=== PATIENT | male | born 1985 | race American Indian/Alaskan Native ===

== ENCOUNTER 2017-12-26 15:36 | Emergency (ER) | payer SELFPAY ==
--- NOTE | 2017-12-26 18:06 | Emergency Department Report ---
HPI - General Chief Complaint: Extremity Problem,Nontraumatic Time Seen by Provider: 12/26/17 17:30 - HPI HPI: 32-year-old male presents to the emergency department with a complaint of swelling of the left foot. He says that the symptoms going on for 2 days but the right foot was also swollen yesterday but that spontaneously resolved. He denies any trauma including any rolling of the foot or ankle. He does not have any discomfort to the area. He denies any skin color change, warmth, rash. He denies any other past medical history. 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 He has not taken anything for his symptoms prior presentation. ED Past Medical Hx - Past Medical History Previous Medical History?: No - Surgical History Past Surgical History?: No - Social History Smoking Status: Never Smoker Substance Use Type: None ED Review of Systems ROS: Stated complaint: SWOLLEN Other details as noted in HPI Comment: All other systems reviewed and negative Constitutional: denies: chills, fever Eyes: denies: eye pain, eye discharge, vision change ENT: denies: ear pain, throat pain Respiratory: denies: cough, shortness of breath, wheezing Cardiovascular: edema. denies: chest pain, palpitations Gastrointestinal: denies: abdominal pain, nausea, diarrhea Genitourinary: denies: urgency, dysuria Musculoskeletal: joint swelling. denies: back pain Skin: denies: rash, lesions Neurological: denies: headache, weakness, paresthesias Physical Exam - Physical Exam Vital Signs: Vital Signs 12/26/17 15:55 Temperature 98.3 F Pulse Rate 60 Respiratory 16 Rate Blood Pressure 115/70 O2 Sat by Pulse 97 Oximetry Physical Exam: GENERAL: The patient is well-developed well-nourished. HENT: Normocephalic. Atraumatic. Patient has moist mucous membranes. EYES: Extraocular motions are intact. NECK: Supple. Trachea is midline. CHEST/LUNGS: Clear to auscultation. There is no respiratory distress noted. HEART/CARDIOVASCULAR: Regular. There is no tachycardia. There is no murmur. ABDOMEN: There is no abdominal distention. SKIN: Skin is warm and dry. There is some nonpitting swelling to the left foot. No erythema, rash, fluctuance. NEURO: The patient is awake, alert, and oriented. The patient is cooperative. The patient has no focal neurologic deficits. The patient has normal speech. MUSCULOSKELETAL: There is no tenderness or deformity. There is no limitation range of motion. There is a palpable dorsalis pedis pulse and cap refill less than 2 seconds to the affected left foot. ED Course Vital Signs 12/26/17 15:55 Temperature 98.3 F Pulse Rate 60 Respiratory 16 Rate Blood Pressure 115/70 O2 Sat by Pulse 97 Oximetry ED Medical Decision Making - Lab Data Result diagrams: 12/26/17 18:10 12/26/17 18:10 - Radiology Data Radiology results: image reviewed interpreted by me: X-ray of left ankle does not show any fracture, dislocation or any acute process. - Medical Decision Making Patient presents with a one to 2 day history of left foot and ankle swelling. There is no signs of any infection. Labs are unremarkable. No leukocytosis. He had a negative d-dimer. X-ray does not show any fracture, dislocation or any acute process. Vital signs stable throughout his ED course. He appears safe for discharge home at this time. He has been set up for an outpatient venous Doppler ultrasound to rule out a DVT. If positive, he'll be redirected to the emergency department for anticoagulation. If negative, he has been given referrals for primary care. He has been instructed to use an Luis M wrap for compression and keep the foot elevated when he is not working. He'll return to the ER if any worsening of symptoms or any acute distress. - Differential Diagnosis venous stasis, DVT, CHF, cellulitis Critical Care Time: No Critical care attestation.: If time is entered above; I have spent that time in minutes in the direct care of this critically ill patient, excluding procedure time. ED Disposition Clinical Impression: Swelling of left foot Disposition: DC-01 TO HOME OR SELFCARE Is pt being admited?: No Condition: Stable Instructions: Leg Edema (ED) Additional Instructions: Please follow up with a primary care physician in the next few days. I have also given you a referral for a local pneumatic hoist operator, Dr. Her. I have said she will up to return to the outpatient imaging portion of the hospital for a left leg venous Doppler ultrasound to rule out a blood clot. If positive, U will be redirected to the emergency department for further treatment. If negative, follow up with the physicians as described above. Return to the emergency Department with any worsening of your symptoms or any acute distress. Referrals: PRIMARY CARE, [Primary Care Provider] - 3-5 Days ALEXX HER DPM [Staff Physician] - 3-5 Days KAREN CHANEL MD [Staff Physician] - 3-5 Days [facility] [Outside] - 3-5 Days Time of Disposition: 18:57
--- NOTE | 2017-12-26 18:08 | XRay Report ---
FINAL REPORT EXAM: XR ANKLE 3+V LT HISTORY: ankle swelling TECHNIQUE: 3 views of the left ankle PRIORS: None. FINDINGS: Bimalleolar soft tissue prominence may reflect swelling. There is no radiographic evidence of definite acute fracture or dislocation. No evidence of osseous lesion. Joint spaces are maintained. There is no evidence of significant degenerative arthrosis. IMPRESSION: No acute skeletal pathology
[2017-12-26 18:25] LABS: Basophils # (Auto) 0.1 K/mm3 (0.0-0.1); Basophils % (Auto) 0.7 % (0.0-1.8); Eosinophils # (Auto) 0.1 K/mm3 (0.0-0.4); Eosinophils % (Auto) 1.3 % (0.0-4.3); Hematocrit 45.6 % (35.5-45.6); Lymphocytes # (Auto) 2.3 K/mm3 (1.2-5.4); Mean Corpuscular HGB Conc 33 % (32-34); Mean Corpuscular Hemoglobin 30 pg (28-32); Mean Corpuscular Volume 90 fl (84-94); Monocytes # (Auto) 0.8 K/mm3 (0.0-0.8); Monocytes % (Auto) 10.1 % (0.0-7.3); Platelet Count 194 K/mm3 (140-440); Red Cell Distribution Width 13.7 % (13.2-15.2)
[2017-12-26 18:34] LABS: BUN/Creatinine Ratio 9; Blood Urea Nitrogen 9 mg/dL (9-20); Calcium 8.4 mg/dL (8.4-10.2); Hemolysis Index 52
[2017-12-26 19:07] VITALS: BP 132/88
== END 2017-12-26 19:07 | disposition home or self-care (01) ==
LOC: ED 15:36
DX: M79.89 Other specified soft tissue disorders (principal)
CPT/HCPCS: 36415; 80048; 85025; 85379; 99284

== ENCOUNTER 2020-04-02 00:19 | Emergency (ER) | payer SELFPAY ==
[2020-04-02 00:55] VITALS: BP 110/70
--- NOTE | 2020-04-02 02:40 | Emergency Department Report ---
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 States that over the last few days he felt some shooting pain down his left leg as well but no loss of bowel or bladder no saddle paresthesia. MD Complaint: back pain Similar Symptoms Previously: No Place: home Radiation: none Severity: mild, moderate Quality: dull Consistency: constant Improves With: none Worsens With: none Associated Symptoms: denies: confusion, chest pain, cough, difficulty urinating, incontinence, fever/chills, constipation, loss of appetite, rash, seizure, shortness of breath, syncope - Related Data Previous Rx's Medication Instructions Recorded Last Taken Type Ketorolac [Toradol] 10 mg PO Q6H PRN #15 tablet 04/02/20 Unknown Rx methOCARBAMOL [Robaxin TAB] 750 mg PO Q8H PRN #14 tablet 04/02/20 Unknown Rx Allergies Allergy/AdvReac Type Severity Reaction Status Date / Time No Known Allergies Allergy Verified 12/26/17 15:54 ED Review of Systems ROS: Stated complaint: LOWER BACK PAIN LT LEG TINGLING Other details as noted in HPI Comment: All other systems reviewed and negative ED Past Medical Hx - Past Medical History Previous Medical History?: No - Surgical History Past Surgical History?: Yes Additional Surgical History: Ear tubes - Social History Smoking Status: Never Smoker Substance Use Type: Marijuana - Medications Home Medications: Home Medications Medication Instructions Recorded Confirmed Last Taken Type Ketorolac [Toradol] 10 mg PO Q6H PRN #15 tablet 04/02/20 Unknown Rx methOCARBAMOL [Robaxin TAB] 750 mg PO Q8H PRN #14 tablet 04/02/20 Unknown Rx ED Physical Exam - General Limitations: No Limitations General appearance: alert, in no apparent distress - Head Head exam: Present: atraumatic, normocephalic - Eye Eye exam: Present: normal appearance, PERRL, EOMI Pupils: Present: normal accommodation - ENT ENT exam: Present: normal exam, mucous membranes moist, TM's normal bilaterally - Neck Neck exam: Present: normal inspection, full ROM - Respiratory Respiratory exam: Present: normal lung sounds bilaterally. Absent: respiratory distress, wheezes, rales, chest wall tenderness, accessory muscle use, decreased breath sounds - Cardiovascular Cardiovascular Exam: Present: regular rate, normal rhythm. Absent: systolic murmur, diastolic murmur, rubs, gallop - GI/Abdominal GI/Abdominal exam: Present: soft, normal bowel sounds - Rectal Rectal exam: Present: deferred - Extremities Exam Extremities exam: Present: normal inspection - Back Exam Back exam: Present: normal inspection - Neurological Exam Neurological exam: Present: alert, oriented X3 - Psychiatric Psychiatric exam: Present: normal affect, normal mood - Skin Skin exam: Present: warm, dry, intact, normal color. Absent: rash ED Course Vital Signs 04/02/20 00:44 Temperature 97.9 F Pulse Rate 81 Respiratory 16 Rate Blood Pressure 110/70 O2 Sat by Pulse 96 Oximetry ED Medical Decision Making - Medical Decision Making Pt presents the emergency department complaining of back pain most consistent with lower back pain back Pain Most Consistent with Strain/Contusion. Differential Diagnosis Includes Lumbar Go Versus Musculoskeletal Spasm, Strain Versus Sciatica. No Back Pain Red Flags on History or Physical. Presentation Not Consistent with Malignancy, Fracture, Cauda Equina, Abdominal Aortic Aneurysm, Viscus Perforation, Pulmonary Embolism, Renal Colic, Pyelonephritis. Patient reports no B symptoms, trauma trauma, incontinence, saddle anesthesia, distal weakness, urinary symptoms and is a febrile. Critical care attestation.: If time is entered above; I have spent that time in minutes in the direct care of this critically ill patient, excluding procedure time. ED Disposition Clinical Impression: Lumbago Disposition: DC-01 TO HOME OR SELFCARE Is pt being admited?: No Does the pt Need Aspirin: No Condition: Stable Instructions: Lumbar Radiculopathy (ED), Low Back Strain (ED), Acute Low Back Pain (ED) Prescriptions: methOCARBAMOL [Robaxin TAB] 750 mg PO Q8H PRN #14 tablet PRN Reason: Pain, Moderate (4-6) Ketorolac [Toradol] 10 mg PO Q6H PRN #15 tablet PRN Reason: Pain Referrals: BONG VELOZ MD [Staff Physician] - 3-5 Days
== END 2020-04-02 03:22 | disposition home or self-care (01) ==
LOC: ED 00:19
DX: M54.5 Low back pain (principal); F12.10 Cannabis abuse, uncomplicated; Z79.899 Other long term (current) drug therapy
CPT/HCPCS: 99282

== ENCOUNTER 2020-05-18 10:33 | Emergency (ER) | payer SELFPAY ==
[2020-05-18 10:40] VITALS: BP 128/77
--- NOTE | 2020-05-18 10:58 | Emergency Department Report ---
ED Extremity Problem HPI - General Chief complaint: Extremity Injury, Lower Stated complaint: LEG PAIN Time Seen by Provider: 05/18/20 10:53 Source: patient Mode of arrival: Ambulatory Limitations: No Limitations - History of Present Illness Initial comments: Patient is a 34-year-old male presents emergency room with complaints of left thigh pain that began couple days ago. 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 He states that the handle from the pallet nisha hit his left leg. He states he has been having pain since then. He has been ambulatory without difficulty. He denies ever injuring in the past. He denies any swelling, numbness, weakness. No past medical history. No allergies to medications. - Related Data Previous Rx's Medication Instructions Recorded Last Taken Type Ketorolac [Toradol] 10 mg PO Q6H PRN #15 tablet 04/02/20 Unknown Rx methOCARBAMOL [Robaxin TAB] 750 mg PO Q8H PRN #14 tablet 04/02/20 Unknown Rx Allergies Allergy/AdvReac Type Severity Reaction Status Date / Time No Known Allergies Allergy Verified 12/26/17 15:54 ED Review of Systems ROS: Stated complaint: LEG PAIN Other details as noted in HPI Comment: All other systems reviewed and negative ED Past Medical Hx - Past Medical History Previous Medical History?: No - Surgical History Past Surgical History?: No Additional Surgical History: Ear tubes - Social History Smoking Status: Never Smoker Substance Use Type: Marijuana - Medications Home Medications: Home Medications Medication Instructions Recorded Confirmed Last Taken Type Ketorolac [Toradol] 10 mg PO Q6H PRN #15 tablet 04/02/20 Unknown Rx methOCARBAMOL [Robaxin TAB] 750 mg PO Q8H PRN #14 tablet 04/02/20 Unknown Rx ED Physical Exam - General Limitations: No Limitations General appearance: alert, in no apparent distress - Head Head exam: Present: atraumatic, normocephalic - Eye Eye exam: Present: normal appearance - ENT ENT exam: Present: mucous membranes moist - Respiratory Respiratory exam: Absent: respiratory distress, accessory muscle use - Extremities Exam Extremities exam: Present: other (mild left lateral quadriceps ttp, no ecchymosis, no hematoma, no abrasion, no laceration, no erythema, no increased warmth, no edema, no bony ttp of the LLE, FROM of the LLE, neurovascularly intact, no deformity) - Neurological Exam Neurological exam: Present: alert, oriented X3, CN II-XII intact, normal gait. Absent: motor sensory deficit - Psychiatric Psychiatric exam: Present: normal affect, normal mood - Skin Skin exam: Present: warm, dry, intact ED Course Vital Signs 05/18/20 10:40 Temperature 98.5 F Pulse Rate 88 Respiratory 16 Rate Blood Pressure 128/77 [Right] O2 Sat by Pulse 98 Oximetry ED Medical Decision Making - Medical Decision Making Patient is a 34-year-old male presents emergency room with complaints of left t high pain that began couple days ago. 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 He states that the handle from the pallet nisha hit his left leg. He states he has been having pain since then. He has been ambulatory without difficulty. He denies ever injuring in the past. He denies any swelling, numbness, weakness. No past medical history. No allergies to medications. vitals are normal. on exam: mild left lateral quadriceps ttp, no ecchymosis, no hematoma, no abrasion, no laceration, no erythema, no increased warmth, no edema, no bony ttp of the LLE, FROM of the LLE, neurovascularly intact, no deformity. Patient has no clinical signs of acute fracture or dislocation, he has no bony tenderness, no ecchymosis, no hematoma, he is ambulating without difficulty, he has full range of motion. Symptoms most likely related to mild strain. advised pt May alternate Tylenol and then ibuprofen every 6-8 hours as needed for discomfort. May use ice pack, heating pad, rest, Epson salt bath, elevation of the leg. May use the Luis M wrap [id number] but do not wear too tightly and do not wear at night while sleeping. Follow-up with orthopedic doctor. Follow-up with your primary care doctor. Return to emergency room for any new or worsening symptoms. Critical care attestation.: If time is entered above; I have spent that time in minutes in the direct care of this critically ill patient, excluding procedure time. ED Disposition Clinical Impression: Strain of left quadriceps Qualifiers: Encounter type: initial encounter Qualified Code(s): S76.112A - Strain of left quadriceps muscle, fascia and tendon, initial encounter Disposition: TO HOME OR SELFCARE Is pt being admited?: No Does the pt Need Aspirin: No Condition: Stable Instructions: Muscle Strain (ED), RICE Therapy (ED) Additional Instructions: May alternate Tylenol and then ibuprofen every 6-8 hours as needed for discomf ort. May use ice pack, heating pad, rest, Epson salt bath, elevation of the leg. May use the Luis M wrap [id number] but do not wear too tightly and do not wear at night while sleeping. Follow-up with orthopedic doctor. Follow-up with your primary care doctor. Return to emergency room for any new or worsening symptoms. Referrals: BONG VELOZ MD [Staff Physician] - 2-3 Days [facility] [Provider Group] - 2-3 Days Time of Disposition: 10:59 Print Language: CONGOLESE
== END 2020-05-18 11:36 | disposition home or self-care (01) ==
LOC: ED 10:33
DX: S76.112A Strain of left quadriceps muscle, fascia and tendon, initial encounter (principal); F12.90 Cannabis use, unspecified, uncomplicated; Z79.899 Other long term (current) drug therapy; Z98.890 Other specified postprocedural states; X58.XXXA Exposure to other specified factors, initial encounter; Y93.89 Activity, other specified; Y92.89 Other specified places as the place of occurrence of the external cause; Y99.0 Civilian activity done for income or pay
CPT/HCPCS: 99282